=== PATIENT | female | born 1960 | race Caucasian/White ===

== ENCOUNTER 2017-07-29 06:53 | Day surgery (SDC) | payer OTHER ==
[2017-07-25 17:08] VITALS: BMI 25.7
[2017-07-29] MEDS ORDERED: PROPOFOL 20 ML ONE ×2 (06:56)
[2017-07-29 08:45] VITALS: TEMP 97.6
[2017-07-29 09:15] VITALS: BP 134/72; PULSE 64
--- NOTE | 2017-08-01 15:20 | PATH ---
Surgical Pathology Report Patient Name: TANNER CABRERA [facility]. Rec. #: [id number] /Age/Gender: 1960 (Age: 57) / F Account: [id number] Location: [facility] Taken: 07/29/2017 Received: 07/29/2017 Reported: 08/01/2017 Physicians: Lara Mobley M.D. Specimen(s) Received A: BX DUODENUM B: BX ANTRUM C: BX GASTRIC BODY D: BX GE JUNCTION E: BX PROXIMAL ESOPHAGUS F: BX DESCENDING COLON G: BX SIGMOID Clinical History GERD, rule out colon cancer, diarrhea Rule out celiac disease, rule out H. Pylori, rule out squamous papilloma, rule out microscopic colitis Final Diagnosis A. DUODENUM, BIOPSY: DUODENAL MUCOSA WITH NO SIGNIFICANT PATHOLOGIC FINDINGS. Note: Features suggestive of celiac disease are not identified in this biopsy. B. ANTRUM, BIOPSY: MILD CHRONIC GASTRITIS. IMMUNOSTAIN IS NEGATIVE FOR H. PYLORI ORGANISMS. C. GASTRIC BODY, BIOPSY: MILD CHRONIC GASTRITIS. IMMUNOSTAIN IS NEGATIVE FOR H. PYLORI ORGANISMS. D. GE JUNCTION, BIOPSY: ESOPHAGOGASTRIC JUNCTIONAL (SQUAMOCOLUMNAR) MUCOSA SHOWING MILD CHRONIC INFLAMMATION AND REFLUX-ASSOCIATED CHANGES. NEGATIVE FOR INTESTINAL METAPLASIA. E. PROXIMAL ESOPHAGUS, BIOPSY: SQUAMOUS PAPILLOMA. F. DESCENDING COLON, BIOPSY: COLONIC MUCOSA SHOWING BENIGN/REACTIVE LYMPHOID AGGREGATE. Note: Features suggestive of microscopic colitis are not identified in this biopsy. G. SIGMOID, BIOPSY: COLONIC MUCOSA SHOWING BENIGN/REACTIVE LYMPHOID AGGREGATE. Note: Features suggestive of microscopic colitis are not identified biopsy. Electronically Signed Tamera Boone M.D. Gross Description A. Received in formalin, labeled "duodenum" are 2 [place], irregular portions of soft tissue averaging 0.3 cm. in greatest dimension. The specimens are submitted in toto in one cassette. B. Received in formalin, labeled "antrum" are 2 [place], irregular portions of soft tissue measuring 0.1 and 0.3 cm. in greatest dimension. The specimens are submitted in toto in one cassette. C. Received in formalin, labeled "body" is a massey, irregular portion of soft tissue measuring 0.6 cm. in greatest dimension. The specimen is submitted in toto in one cassette. D. Received in formalin, labeled "GE junction" is a massey, irregular portion of soft tissue measuring 0.6 cm. in greatest dimension. The specimen is submitted in toto in one cassette. E. Received in formalin, labeled "proximal esophagus" is a massey, irregular portion of soft tissue measuring 0.3 cm. in greatest dimension. The specimen is submitted in toto in one cassette. F. Received in formalin, labeled "descending" are 2 mas[place], irregular portions of soft tissue averaging 0.3 cm. in greatest dimension. The specimens are submitted in toto in one cassette. G. Received in formalin, labeled "sigmoid" are 2 mas[place], irregular portions of soft tissue averaging 0.3 cm. in greatest dimension. The specimens are submitted in toto in one cassette. 07/29/201707/29/2017
== END 2017-07-29 09:20 | disposition home or self-care (01) ==
LOC: FASU 06:53
PROVIDERS: ATTEND Internal Medicine
PROC: 0DBM8ZX Excision of Descending Colon, Via Natural or Artificial Opening Endoscopic, Diagnostic (ICD-10-PCS; 2017-07-29)
PROC: 0DBN8ZX Excision of Sigmoid Colon, Via Natural or Artificial Opening Endoscopic, Diagnostic (ICD-10-PCS; 2017-07-29)
PROC: 0DB18ZX Excision of Upper Esophagus, Via Natural or Artificial Opening Endoscopic, Diagnostic (ICD-10-PCS; principal; 2017-07-29 08:09)
PROC: 0DB68ZX Excision of Stomach, Via Natural or Artificial Opening Endoscopic, Diagnostic (ICD-10-PCS; 2017-07-29 08:09)
DX: D13.0 Benign neoplasm of esophagus (principal); R19.7 Diarrhea, unspecified; K64.8 Other hemorrhoids; R12 Heartburn; K44.9 Diaphragmatic hernia without obstruction or gangrene; K29.50 Unspecified chronic gastritis without bleeding
CPT/HCPCS: 88305-TC; 88342-TC